=== PATIENT | male | born 1950 | race Caucasian/White ===

== ENCOUNTER 2021-10-28 20:20 | Emergency (ER) | payer OTHER ==
[~2021-10-28 20:20] MED LIST: NAPROSYN500 MG PO; OMNICEF 300 MG300 MG PO; PREDNISONE50 MG PO; TESSALON PERLE100 MG PO; VENTOLIN HFA 66.7 GM INH
[2021-10-28 20:40] LABS: HEMOGLOBIN 16.3 gm/dl (14.0-17.5); RED BLOOD COUNT 5.06 M/UL (4.20-5.50); WHITE BLOOD COUNT 8.2 K/UL (4.5-11.0)
[2021-10-28 21:06] LABS: BUN/CREATININE RATIO 13 (0-10)
[2021-10-29] MEDS ORDERED: DOXYCYCLINE HY100 MG PO (00:44)
[2021-10-29] MEDS ORDERED: PREDNISONE 20 M20 MG PO (00:44)
== END 2021-10-29 00:40 | disposition home or self-care (01) ==
LOC: ER1 20:20
PROVIDERS: Physician Assistant
DX: J44.1 Chronic obstructive pulmonary disease with (acute) exacerbation (principal); I10 Essential (primary) hypertension; Z79.899 Other long term (current) drug therapy; Z20.822 Contact with and (suspected) exposure to COVID-19
CPT/HCPCS: 71045; 80053; 82550; 82553; 83874; 83880; 84484; 85025; 85610; 93005; 94664; 94760; 96374; 99285; J2930; Q9967; U0002